=== PATIENT | female | born 1945 | race Caucasian/White ===

== ENCOUNTER 2018-12-31 11:30 | Outpatient (CLI) | payer MEDICARE, BC ==
[2018-12-31 14:06] LABS: Hemoglobin 14.2 g/dL (12.0-16.0); Mean Corpuscular HGB CONC 33.6 g/dL (32.0-36.0); Mean Corpuscular Hemoglobin 32.5 pg (27.0-31.0); Mean Corpuscular Volume 96.7 fL (78.0-98.0); Mean Platelet Volume 6.5 fL (7.4-10.4); Platelet Count 299 thou/uL (130-400); RBC Distribution Width 10.9 % (11.5-14.5); Red Blood Cell (RBC) Count 4.38 mill/uL (4.20-5.40); White Blood Cell (WBC) Count 5.1 thou/uL (4.8-10.8)
[2018-12-31 14:13] LABS: PTT 25.6 SEC (22.9-36.1); Prothrombin Time 12.8 SEC (12.0-14.7)
[2018-12-31 14:29] LABS: Anion Gap 14 mmol/L (10-20); BUN (Urea Nitrogen) 16 mg/dL (9.8-20.1); Calc. Creatinine Clearance 0 mL/min (70-130); Calcium 9.9 mg/dL (7.8-10.44); Carbon Dioxide 27 mmol/L (23-31); Chloride 102 mmol/L (98-107); Estimated GFR-MDRD Greater than 90; Glucose 91 mg/dL (83-110); Potassium 3.7 mmol/L (3.5-5.1); Sodium 139 mmol/L (136-145)
== END 2018-12-31 11:31 | disposition home or self-care (01) ==
LOC: LABBT 11:30
PROVIDERS: ATTEND Surgery
DX: Z01.818 Encounter for other preprocedural examination (principal); M47.12 Other spondylosis with myelopathy, cervical region
CPT/HCPCS: 80048; 85027; 85610; 85730

== ENCOUNTER 2019-01-05 10:00 | Inpatient (IN) | payer MEDICARE, BC ==
[2018-12-31 12:06] VITALS: BMI 24.1
[2019-01-12] MEDS ORDERED: Thrombin 5000 UNITS/5 ML VIAL ONE (06:34)
[2019-01-12] MEDS ORDERED: Sodium Chloride 0.9% 10 ML ONE ×2 (06:34→06:45)
[2019-01-12] MEDS ORDERED: Bacitracin Zinc Ointment 30 gm TUBE ONE (06:45)
[2019-01-12] MEDS ORDERED: Fentanyl 100 MCG/2 ML VIAL ONE (06:52)
[2019-01-12] MEDS ORDERED: Fentanyl 250 MCG/5 ML VIAL ONE (07:12)
[2019-01-12] MEDS ORDERED: Promethazine HCl 25 MG/ML VIAL IM PRN (12:13)
[2019-01-12] MEDS ORDERED: HYDROmorphone 2 MG/ML VIAL SLOW IVP PRN (12:13)
[2019-01-12] MEDS ORDERED: Promethazine HCl 25 MG/ML VIAL SLOW IVP PRN (12:13)
[2019-01-12] MEDS ORDERED: Ondansetron HCl/PF 4 MG/2 ML Vial IVP PRN (12:13)
[2019-01-12] MEDS ORDERED: PACU-Morphine 4MG/ML VIAL SLOW IVP PRN (12:13)
[2019-01-12] MEDS ORDERED: Meperidine HCl/PF 25 MG/ML VIAL SLOW IVP PRN (12:13)
[2019-01-12] MEDS ORDERED: Morphine Sulfate 2 MG/ML SYRINGE SLOW IVP PRN (12:13)
[2019-01-12] MEDS ORDERED: Vecuronium 10 MG VIAL ONE ×2 (12:19→13:10)
[2019-01-12] MEDS ORDERED: HYDROmorphone 2 MG/ML VIAL ONE (13:10)
[2019-01-12] MEDS ORDERED: Esmolol 100 MG/10 ML VIAL ONE ×2 (13:10→14:04)
[2019-01-12] MEDS ORDERED: Rocuronium Bromide 10 MG/ML (10ML VIAL) ONE (13:10)
[2019-01-12] MEDS ORDERED: Glycopyrrolate 0.2 MG/ML 5 ML SYRINGE ONE (13:10)
[2019-01-12] MEDS ORDERED: PROPOFOL 200 MG/20 ML VIAL ONE (13:10)
[2019-01-12] MEDS ORDERED: Ondansetron PF 4 MG/2 ML Vial ONE (13:10)
[2019-01-12] MEDS ORDERED: Dexamethasone 20 MG/5 ML VIAL ONE (13:10)
[2019-01-12] MEDS ORDERED: Lidocaine 1% PF 5 ML VIAL ONE (13:10)
[2019-01-12] MEDS ORDERED: Acetaminophen 325 MG TAB PO PRN (14:07)
[2019-01-12] MEDS ORDERED: Morphine 2 MG/ML SYRINGE SLOW IVP PRN (14:07)
[2019-01-12] MEDS ORDERED: Promethazine HCl 25 MG/ML VIAL IVPB PRN (14:07)
[2019-01-12] MEDS ORDERED: Bisacodyl 10 MG SUPP PR PRN (14:07)
[2019-01-12] MEDS ORDERED: Mag-Al 1200 mg/1200 mg/30 ML UDCUP PO PRN (14:07)
[2019-01-12] MEDS ORDERED: Milk Of Magnesia 30 ML UDCUP PO PRN (14:07)
[2019-01-12] MEDS ORDERED: traMADol HCl 50 MG TAB PO PRN (14:07)
[2019-01-12] MEDS ORDERED: Acetaminophen/Codeine 30-300mg Tablet PO PRN (14:07)
[2019-01-12] MEDS ORDERED: Fleet Enema 133 ML BOT PR PRN (14:07)
[2019-01-12] MEDS ORDERED: CEFAZOLIN 2 GM in Premix Bag 1 BAG IVPB SCH (15:00)
[2019-01-12] MEDS ORDERED: Promethazine HCl 25 MG, Admixture Fee 1 EACH in Sodium Chloride 0.9% 50 ML IVPB PRN (21:09)
[2019-01-12] MEDS: tiZANidine HCl 4 MG TAB PO PRN (21:35)
[2019-01-12] MEDS: HYDROcodone/Acetaminophen 7.5/325 mg Tablet PO PRN (21:36)
[2019-01-12] MEDS: CEFAZOLIN 2 GM in Premix Bag 1 BAG IVPB SCH (21:37)
[2019-01-12] MEDS: Sodium Chloride 0.9% 1,000 ML IV SCH (21:37)
[2019-01-12] MEDS: Promethazine HCl 12.5 MG, Admixture Fee 1 EACH in Sodium Chloride 0.9% 50 ML IVPB PRN (21:39)
[2019-01-13] MEDS: Sodium Chloride 0.9% 1,000 ML IV SCH ×3 (06:18→20:29)
[2019-01-13] MEDS: CEFAZOLIN 2 GM in Premix Bag 1 BAG IVPB SCH ×3 (06:21→22:59)
[2019-01-13 07:42] LABS: #Lymphocytes 1.8 thou/uL (1.20-3.40); #Neutrophils 6.3 thou/uL (1.40-6.50); %Basophils 0.2 % (0.0-1.0); %Eosinophils 0.3 % (0.0-10.0); %Lymphocytes 19.6 % (21.0-51.0); %Neutrophils 68.9 % (42.0-75.0); Hemoglobin 11.4 g/dL (12.0-16.0); Mean Corpuscular HGB CONC 33.6 g/dL (32.0-36.0); Mean Corpuscular Hemoglobin 33.2 pg (27.0-31.0); Mean Corpuscular Volume 98.8 fL (78.0-98.0); Mean Platelet Volume 6.5 fL (7.4-10.4); Platelet Count 241 thou/uL (130-400); Red Blood Cell (RBC) Count 3.44 mill/uL (4.20-5.40); White Blood Cell (WBC) Count 9.1 thou/uL (4.8-10.8)
[2019-01-13 07:55] LABS: Anion Gap 10 mmol/L (10-20); BUN (Urea Nitrogen) 14 mg/dL (9.8-20.1); Calc. Creatinine Clearance 73 mL/min (70-130); Carbon Dioxide 27 mmol/L (23-31); Chloride 105 mmol/L (98-107); Estimated GFR-MDRD 89; Potassium 3.6 mmol/L (3.5-5.1); Sodium 138 mmol/L (136-145)
[2019-01-13 07:56] LABS: Calcium 8.5 mg/dL (7.8-10.44); Glucose 109 mg/dL (83-110)
--- NOTE | 2019-01-13 08:48 | OP ---
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 PROCEDURES PERFORMED: 1. Anterior C3-C4, C4-C5, C5-C6, and C6-C7 diskectomies for confucianism of anatomic alignment and normalization of cervical lordosis, and decompression of spinal cord nerve roots. 2. Placement of interbody spacer, C3-C4, C4-C5, C5-C6, and C6-C7 packed with local bone autograft obtained with the same incision and was packed with allograft for arthrodesis. 3. Anterior cervical plate and screw fixation C3, C4, C5, C6, and C7. 4. Use of operative microscope for microdissection. 5. C3, C4, C5, C6, and C7 laminectomies, partial facetectomies, and foraminotomies for decompression of spinal cord and nerve roots. 6. Posterior screw giovanna fixation C3, C4, C5, C6, and C7 for posterior lateral fusion. 7. Posterior lateral fusion C3, C4, C5, C6, and C7. 8. Use of local bone autograft and allograft fusion of C3, C4, C5, C6, and C7 posterolateral. DESCRIPTION OF PROCEDURE: After informed consent was obtained from the patient, the patient was brought to the OR. Proper patient, pause, and identification were carried out. She was placed under excellent general endotracheal anesthesia and positioned supine on the OR table and the cervical spine placed in neutral position with slight extension. Right anterior oblique lukasz was drawn out and this region was sterilely cleansed, prepared, and draped. Proper patient, pause, and identification were carried out. The wound was then opened with a combination of sharp, monopolar, and blunt dissection, and proceeded lateral to the larynx, pharynx, tracheoesophageal bundle medial to the right carotid sheath. We identified the prevertebral layer of deep cervical fascia and the C3, C4, C5, C6, and C7 segments were all exposed and retractors were placed following localization. We then performed distraction at C3-C4 and diskectomy at C3-C4 was then performed. Diskectomy at C3-C4 with preparation of the endplates with placement of interbody spacer packed with graft. This was repeated at C4-C5, C5-C6, and C6-C7 diskectomies at all of those segments to restore anatomic alignment. We then turned our attention to the anterior cervical plate and screw fixation, once the microscope was removed and a final tightening occurred. I was satisfied with our construct. At this point, the wound was copiously irrigated and closed in anatomic layers following hemostasis and placement of a drain. We then turned the patient over following placement of the Mariano truck headlight assembler and secured her head in the Rdz truck headlight assembler. An incision was drawn out from C3 through C7 posteriorly and this area was sterilely cleansed, prepared, and draped. Proper patient, pause, and identification were carried out. The wound was then opened with a combination of sharp, monopolar, and blunt dissection. The C3, C4, C5, C6, and C7 segments were all exposed along with facet complexes. Localization film confirmed our area of interest. We then performed C3, C4, C5, C6, C7 laminectomies, partial facetectomies, and foraminotomies. There was no spinal fluid leak and placed lateral mass screws at C3, C4, C5, C6, and C7 bilaterally and rods were placed and final tightening occurred. Decortication occurred over the posterior lateral region and this region was packed with local bone autograft obtained from the same incision, allograft from C3 all the way down to C7. Copious irrigation occurred throughout as did maximizing hemostasis. The wound was then closed in anatomic layers following sprinkling of vancomycin powder. The patient then emerged from anesthesia. Job ID: [id number]
[2019-01-13] MEDS ORDERED: HCTZ PO SCH (09:00)
[2019-01-13] MEDS ORDERED: SPIRONO PO SCH (09:00)
[2019-01-13] MEDS: Rosuvastatin 5 MG TAB PO SCH (09:09)
--- NOTE | 2019-01-13 09:35 | PRG ---
DATE OF SERVICE: 01/13/2019 DICTATED FOR: Yared Brown MD. SUBJECTIVE: Ms. Alfaro is a postoperative day number one, having undergone anterior cervical diskectomy and fusion with posterior laminectomy and fusion. She is doing very well at this time. Her FER drain has put out 35 mL in the past 24 hours. The patient looks actually very comfortable today. She states her hand function has improved. She still has numbness and tingling in the hands and bilateral feet, but some improvement in bilateral hand paresthesias. PLAN: We will continue to work with pain control and therapies. I have asked that the nurse not to advance her diet. She should remain on full liquids. We will continue antibiotics and the FER drain. We may plan for dismissal tomorrow; however, we will see how she does overnight. She is agreeable with this and really is doing well overall with good strength in bilateral hands and mild bilateral upper extremity weakness, continued left footdrop. Please call with any changes in the patient's neurologic status. Job ID: [id number]
--- NOTE | 2019-01-13 09:50 | PRG ---
DATE OF SERVICE: 01/13/2019 SUBJECTIVE: Ms. Alfaro is doing well, postoperative day 1 from anterior-posterior reconstruction of her spine decompression and fusion. She noticed there is some improvement in her hands, but with persistent paresthesias, not surprising. Her drain output has been robust, and we will leave that in. We will plan for consultation with Rehab. Job ID: [id number]
[2019-01-13] MEDS: Promethazine HCl 12.5 MG, Admixture Fee 1 EACH in Sodium Chloride 0.9% 50 ML IVPB PRN (14:52)
[2019-01-13] MEDS: HYDROcodone/Acetaminophen 7.5/325 mg Tablet PO PRN (20:25)
[2019-01-13] MEDS: tiZANidine HCl 4 MG TAB PO PRN (20:26)
[2019-01-14] MEDS: CEFAZOLIN 2 GM in Premix Bag 1 BAG IVPB SCH ×3 (06:28→17:44)
[2019-01-14] MEDS: tiZANidine HCl 4 MG TAB PO PRN ×2 (06:28→21:52)
[2019-01-14] MEDS: Spironolactone 25 MG TAB PO SCH (08:27)
[2019-01-14] MEDS: Rosuvastatin 5 MG TAB PO SCH (08:28)
[2019-01-14] MEDS: Hydrochlorothiazide 25 MG TAB PO SCH (08:32)
--- NOTE | 2019-01-14 11:30 | PRG ---
DATE OF SERVICE: 01/14/2019 DICTATED FOR: Yared Brown MD. Ms. Alfaro is postoperative day #1 having undergone both anterior and posterior cervical fusions. The patient is having some difficulty swallowing pills today. She is able to manage her secretions. She has some increased posterior neck pain, but again notes improvement in her bilateral hand functioning and numbness and tingling. She does continue to have paresthesias in bilateral hands, but again this is improved. She states she feels as though she might be slightly stronger on her feet and has more feeling in the bilateral lower extremities. She has been up walking with a walker to the bathroom. Her Peña has been DC'd. We will continue antibiotics. Her drain output has been 25 mL in the past 24 hours. However, we would like to keep this in given her continued swallowing difficulties. She may be ready for discharge as early as tomorrow provided that she has adequate pain control. Otherwise, therapies will work with her today. Please call with any changes in patient's neurologic status. Otherwise, hope for dismissal tomorrow. Job ID: [id number]
[2019-01-14] MEDS: HYDROcodone/Acetaminophen 7.5/325 mg Tablet PO PRN ×2 (12:24→21:52)
[2019-01-14] MEDS: Promethazine HCl 12.5 MG, Admixture Fee 1 EACH in Sodium Chloride 0.9% 50 ML IVPB PRN (16:12)
[2019-01-15] MEDS: Promethazine HCl 12.5 MG, Admixture Fee 1 EACH in Sodium Chloride 0.9% 50 ML IVPB PRN (00:38)
[2019-01-15] MEDS: CEFAZOLIN 2 GM in Premix Bag 1 BAG IVPB SCH ×2 (00:41→08:10)
[2019-01-15] MEDS: Sodium Chloride 0.9% 1,000 ML IV SCH (00:45)
[2019-01-15] MEDS: tiZANidine HCl 4 MG TAB PO PRN (05:54)
[2019-01-15] MEDS: HYDROcodone/Acetaminophen 7.5/325 mg Tablet PO PRN ×2 (07:55→13:29)
[2019-01-15] MEDS: Spironolactone 25 MG TAB PO SCH (08:32)
[2019-01-15] MEDS: Rosuvastatin 5 MG TAB PO SCH (08:32)
[2019-01-15] MEDS: Hydrochlorothiazide 25 MG TAB PO SCH (08:32)
[2019-01-15 11:28] VITALS: BP 144/73; TEMP 98
--- NOTE | 2019-01-15 13:26 | PRG ---
DATE OF SERVICE: 01/15/2019 SUBJECTIVE: Ms. Alfaro is now postoperative day #3 following anterior-posterior decompression and fusion. She is doing well. She still has paresthesias in her hands, but does feel as if she is walking with a bit more stability, we will remove her anterior drain. We have prepared her for dismissal and we went over do's and don'ts in the postoperative period. Job ID: [id number]
--- NOTE | 2019-01-18 10:45 | DIS ---
DATE OF ADMISSION: 01/12/2019 DATE OF DISCHARGE: 01/15/2019 This is Lm Philip PA-C dictating a report for Yared Brown MD. DISCHARGE DIAGNOSES: 1. Cervical spondylosis with myelopathy. 2. Hypertension. 3. Hyperlipidemia. HOSPITAL COURSE: Ms. Alfaro was admitted to undergo C3-C7 ACDF with C3-C7 posterior laminectomies and cervical fusion. The patient tolerated the procedure well without complication. She required several overnight stays for adequate pain control as well as some rehabilitation in regard to improved walking balance improvement and hand function. At the time of discharge, the patient's pain was under very good control and her FER drain was removed. She had improvement in numbness and tingling in all the extremities, especially in the hands and states she feels as though she was walking, she felt stronger in her feet. Appropriate outpatient followup appointments and education were provided. Again at the time of discharge, the patient was doing very well neurosurgically. Job ID: [id number]
== END 2019-01-15 13:32 | disposition home or self-care (01) | DRG 455 ==
LOC: SURG A 01-12 05:47 → 3SE 01-12 14:56
PROVIDERS: ADMIT Surgery; ATTEND Surgery
PROC: 0RB30ZZ Excision of Cervical Vertebral Disc, Open Approach (ICD-10-PCS; principal; 2019-01-12)
PROC: 0RG20A0 Fusion of 2 or more Cervical Vertebral Joints with Interbody Fusion Device, Anterior Approach, Anterior Column, Open Approach (ICD-10-PCS; 2019-01-12)
PROC: 0RG2071 Fusion of 2 or more Cervical Vertebral Joints with Autologous Tissue Substitute, Posterior Approach, Posterior Column, Open Approach (ICD-10-PCS; 2019-01-12)
DX: M47.12 Other spondylosis with myelopathy, cervical region (principal); M48.02 Spinal stenosis, cervical region; M40.292 Other kyphosis, cervical region; M21.372 Foot drop, left foot; I10 Essential (primary) hypertension; E78.5 Hyperlipidemia, unspecified
CPT/HCPCS: 36415; 76000; 80048; 85025; C1713; C1768; C1776; J0131; J0690; J1100; J1170; J2001; J2405; J2550; J2704; J3010; J3370; J3490; J7050

== ENCOUNTER 2019-03-03 08:51 | Outpatient (CLI) | payer MEDICARE, BC ==
--- NOTE | 2019-03-03 09:22 | RAD ---
Exam: 5 views cervical spine HISTORY: Cervical disc degeneration. Surgical follow-up. FINDINGS: Anterior fusion of C3-C7. Associated posterior fusion hardware from C3 through C7. Disc pro sthesis at C3-C4, C4-C5, C5-C6 and C6-C7. Regards anterior and posterior fusion hardware, no perihardware loosening. Cervical spine vertebral body height is maintained. No fracture. Straightening of normal cervical lordosis noted. 3.5 mm of anterolisthesis of C7 upon T1. Lateral masses of C1 and C2 articulate appropriately. Visualized odontoid process is unremarkable. In the AP projection, no malalignment. IMPRESSION: 1. Anterior and posterior cervical fusion as described above. 2. Multilevel disc prosthesis described above. 2. Grade 1 anterolisthesis of C7 upon T1
== END 2019-03-03 08:52 | disposition home or self-care (01) ==
LOC: TBSIIMAG 08:51
PROVIDERS: ATTEND Surgery
DX: M50.30 Other cervical disc degeneration, unspecified cervical region (principal); M43.13 Spondylolisthesis, cervicothoracic region; Z98.1 Arthrodesis status
CPT/HCPCS: 72040